=== PATIENT | female | born 2000 | race Caucasian/White ===

== ENCOUNTER 2022-05-29 19:44 | Emergency (ER) | payer BC, SELFPAY ==
[2022-05-29 19:53] VITALS: BP 122/75; PULSE 60; RESP 18; TEMP 37.2; O2SAT 98; BMI 26.5
--- NOTE | 2022-05-29 20:19 | ED.EYEPROB ---
HPI - Eye Problem General Chief complaint: Eye Problems Stated complaint: Possible abrasion on right eye Time Seen by Provider: 05/29/22 20:01 History of Present Illness HPI Narrative: This 22-year-old female comes in reporting pain and irritation in her right eye. 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 She thinks she may have had something blow into her right eye. Related Data Home Medications Medication Instructions Recorded Confirmed escitalopram oxalate 20 mg tablet 20 mg PO DAILY 05/29/22 05/29/22 (Lexapro) loratadine 10 mg tablet (Claritin) 10 mg PO DAILY 05/29/22 05/29/22 mometasone 50 mcg/actuation nasal 2 spray intranasal DAILY 05/29/22 05/29/22 spray olopatadine 0.2 % eye drops (Clear 1 drp ophthalmic (eye) DAILY 05/29/22 05/29/22 Eyes Once Daily Allergy) Allergies Allergy/AdvReac Type Severity Reaction Status Date / Time sulfamethoxazole Allergy Verified 05/29/22 19:56 [From Bactrim] trimethoprim [From Bactrim] Allergy Verified 05/29/22 19:56 Review of Systems Status of ROS: Reports: 10 or more systems reviewed and unremarkable except as noted in History and below Narrative: Constitutional: No fevers, no weight gain or loss. Eyes: Right eye discomfort as described above. No vision changes. HENT: No congestion, no sore throat, no ear pain. Cardiovascular: No chest pain, no palpitations. Respiratory: No shortness of breath, no wheezes, no cough. Gastrointestinal: No abdominal pain, no vomiting, no diarrhea. Genitourinary: No dysuria, no hematuria. Musculoskeletal: Normal range of motion. Skin: No rashes, no pruritis. Neurological: No dizziness, weakness, sensory change, speech change. Endo/Heme/Allergies: No bruising or bleeding. No polydipsia. Pysch: no suicidality, no anxiety, no insomnia. All other systems reviewed and are negative. PFSH PFS Social History Smoking Status: Never smoker How often do you have a drink containing alcohol: never AUDIT-C Alcohol total score: 0 Non-prescribed substance use: denies use Exam Narrative: Exam Narrative: Constitutional: Well-developed, well-nourished, no acute distress. HEENT: Normocephalic, atraumatic. The right eye is visualized under magnification. There is some non metallic debris in the lower aspect of the right eye. Neck: Normal range of motion. Nontender. Supple. Heart: Intact distal pulses. Lungs: No chest discomfort. No wheezes, rhonchi, or rales. Abdomen: Nontender. Back: Normal range of motion. Extremities: Normal range of motion. No injury. Skin: Intact. No rash. Warm. No erythema or pallor. Neurologic: No altered sensation. No weakness. Alert and oriented. Psychiatric: No suicidality. No anxiety or depression. No insomnia. Nursing notes and vitals signs are reviewed. Const: Vital Signs, click to edit/add: Vital Signs - 24 hr 05/29/22 19:53 Temperature 99.0 F Pulse Rate [Left P ulse Oximeter] 60 Respiratory Rate 18 Blood Pressure [Ri ght Upper Arm] 122/75 Pulse Oximetry 98 Oxygen Delivery Me thod Room Air Course Vital Signs Vital signs: Initial Vital Signs Temperature 99.0 F 05/29/22 19:53 Temperature Source Temporal Artery Scan 05/29/22 19:53 Pulse Rate 60 05/29/22 19:53 Respiratory Rate 18 05/29/22 19:53 Blood Pressure 122/75 05/29/22 19:53 Blood Pressure Mean 90 05/29/22 19:53 Blood Pressure Position Sitting 05/29/22 19:53 Pulse Oximetry 98 05/29/22 19:53 Oxygen Delivery Method 05/29/22 19:53 Vital Signs Temperature 99.0 F 05/29/22 19:53 Pulse Rate 60 05/29/22 19:53 Respiratory Rate 18 05/29/22 19:53 Blood Pressure 122/75 05/29/22 19:53 Pulse Oximetry 98 05/29/22 19:53 Oxygen Delivery Method 05/29/22 19:53 Temperature 99.0 F 05/29/22 19:53 Pulse Rate 60 05/29/22 19:53 Respiratory Rate 18 05/29/22 19:53 Blood Pressure 122/75 05/29/22 19:53 Pulse Oximetry 98 05/29/22 19:53 Oxygen Delivery Method 05/29/22 19:53 MDM - Eye Problem MDM Narrative Medical decision making narrative: This patient received anesthesia of the right eye using tetracaine. I was able to examine the right eye under magnification. I also used floor seen dye and a black light for further evaluation. There was no dye uptake. A small amount of non metallic debris was removed with a Q-tip. The patient is feeling significantly better with the tetracaine anesthesia effect. She went home with a prescribed bottle of flurbiprofen ophthalmic solution for additional symptomatic relief. Discharge Plan Discharge Clinical Impression: Foreign body in eye Patient Disposition: Home, Self-Care Condition: Stable Additional Instructions: Take medication is needed and indicated. Avoid rubbing the eye. Follow up with MD or return if worsening symptoms happen. Prescriptions: No Action olopatadine [Clear Eyes Once Daily Allergy] 0.2 % drops 1 drp ophthalmic (eye) DAILY escitalopram oxalate [Lexapro] 20 mg tablet 20 mg PO DAILY mometasone 50 mcg/actuation spray,non-aerosol 2 spray intranasal DAILY Rx Instructions: administer into each nostril loratadine [Claritin] 10 mg tablet 10 mg PO DAILY Stand Alone Forms: [address] Info Instructions
== END 2022-05-29 20:40 | disposition home or self-care (01) ==
LOC: ED 20:36
PROVIDERS: Emergency Provider Emergency Medicine Emergency Medical Services
DX: T15.91XA Foreign body on external eye, part unspecified, right eye, initial encounter (principal)
CPT/HCPCS: 99283; 99284; A9270